=== PATIENT | male | born 1990 | race Caucasian/White ===

== ENCOUNTER → 2023-08-26 | Outpatient (REF) | payer OTHER, SELFPAY | LOC: DHSLP | PROVIDERS: ATTENDING PHYSICIAN Internal Medicine; FAMILY PHYSICIAN Internal Medicine | DX: G47.30 Sleep apnea, unspecified (principal); R06.83 Snoring | CPT/HCPCS: 95800 ==

== ENCOUNTER 2025-04-21 06:40 | Emergency (ER) | payer OTHER, SELFPAY ==
[2025-04-21 06:41] VITALS: BP 150/94
--- NOTE | 2025-04-21 07:13 | ED.GENMED ---
History of Present Illness
General
Chief Complaint: Musculo-Skeletal Complaint
Source: patient
Exam Limitations: none
Time Seen by Provider: 04/21/25 06:53
History of Present Illness
History of Present Illness:
35-year-old male playing flag football last week. Fell with his left arm in landing on his left side causing rib pain. Pain was reasonable until overnight when the pain became more severe. Also some mild shortness of breath. No head injury neck
pain abdominal pain or other complaints. Pain is clearly worse with breathing
Past History
Past History
ED Past Medical History: None
ED Past Surgical History: None
Review of Systems
Review of Systems
All Other Systems: Not applicable
ABD/GI: Reports no symptoms
Phy Exam
Physical Exam
Physical Exam:
TRAUMA EXAM:
VITAL SIGNS: Vital signs reviewed, cooperative
DISTRESS: No active disease
EYES: Pupils reactive, no orbital trauma
NOSE: No deformity or epistaxis
FACE AND SCALP: No scalp or facial trauma
NECK: Supple nontender
BACK: Back nontender, pelvis stable to compression
Lungs: Breath sounds equal. No respiratory distress. Tender anterior lower left chest wall. No crepitus no abrasion
CARDIAC: No murmur, pulses equal and strong
ABDOMEN: Soft nontender bowel sounds normal. Specifically no left upper quadrant tenderness. No rebound or guarding no mass or hernia
SKIN: Skin intact no bleeding, color normal
EXTREMITIES: Nontender
NEUROLOGICAL: Alert, oriented, no motor deficits
PSYCH: Mood affect normal
Course
Orders/Labs/Results
Orders:
Orders
04/21/25 06:56
Ribs, Left 3 View W/PA Chest CR [CR Ribs-left 3 Vw W/pa Chest] Urgent
Comment:
Reason For Exam: Left anterior lateral rib trauma
04/21/25 08:02
Ketorolac [Toradol] 60 mg IM NOW STA
Vital Signs
Initial and Last Documented VS:
Initial Vital Signs
Temp Pulse Resp BP Pulse Ox
97.5 F 78 16 150/94 99
04/21/25 06:41 04/21/25 06:41 04/21/25 06:41 04/21/25 06:41 04/21/25 06:41
Last Documented Vital Signs
Temp Pulse Resp BP Pulse Ox
97.5 F 68 16 148/89 98
04/21/25 06:41 04/21/25 08:30 04/21/25 08:30 04/21/25 08:30 04/21/25 08:30
MDM/Problems Addressed
Differential Diagnosis Includes:
Local anterior chest wall tenderness. Breath sounds equal but need to rule out pneumothorax. Abdomen is totally benign. No indication for abdominal CT scanning. X-ray pending.
*Radiology
Radiology exam reviewed: preliminary read by ED provider (neg) and radiology read reviewed (neg)
*Pulse Oximetry
SaO2: 99
Oxygen Mode of Delivery: Room air
Patient hypoxic: no (99)
*Critical Care Note
Total Time (30-74mins, 75-104mins- exclusive of procedures): Not Applicable
ED Attending Note
-
Portions of this chart may have been created with voice recognition software.� Occasional wrong word or��sound alike� substitutions may have occurred due to the inherent limitations of voice recognition software.
Discharge Plan
Departure
Patient Disposition: Home (Routine Discharge)
Date of Disposition: 04/21/25
Time of Disposition: 08:26
Patient with high blood pressure during this ER visit?: Yes
Discharge Problem:
Blunt chest trauma
Instructions: Blunt Chest Trauma (DC), BLOOD PRESSURE
Prescriptions:
No Action
No Current Medications
0
Referrals:
Natividad Estrella DO [Family Provider, Family Practice] - Follow up in 2-3 days
Activity Restrictions/Additional Instructions:
Advil or Motrin for pain. You can also add Tylenol
Return immediately with increasing pain shortness of breath abdominal pain or any other concerning symptoms
Interventions
Interventions:
*Risk Screen - Suicide Last Done: 04/21/25 06:41
*General Assessment Last Done: 04/21/25 06:41
*Neglect/Abuse Screening Last Done: 04/21/25 06:41
*ED- Fall Risk Assessment Last Done: 04/21/25 06:44
*ED COVID-19 Vaccine History Last Done: 04/21/25 06:44
*ED Influenza Vaccine History Last Done: 04/21/25 06:44
*Nursing Disposition Last Done: 04/21/25 08:30
ED-Musculoskeletal Assessment Last Done: 04/21/25 06:53
Discharge Date and Time
Discharge Date/Time: 04/21/25 08:35
Print Language: [place]
[2025-04-21] MEDS: TORADOL 60 MG IM (08:12)
[2025-04-21 08:30] VITALS: BP 148/89
== END 2025-04-21 08:35 | disposition home or self-care (01) ==
LOC: EMR 06:40
PROVIDERS: EMERGENCY PHYSICIAN Emergency Medicine; FAMILY PHYSICIAN Internal Medicine
DX: S29.9XXA Unspecified injury of thorax, initial encounter (principal); W18.39XA Other fall on same level, initial encounter; Y93.62 Activity, american flag or touch football
CPT/HCPCS: 96372; 99284; 71101